=== PATIENT | female | born 1945 | race Caucasian/White ===

== ENCOUNTER → 2017-04-07 | Outpatient (CLI) | payer MEDICARE ==
[2016-05-15 12:38] VITALS: BP 146/77
[~2017-04-07] MED LIST: ACET325T9 PO; ASPI-630 PO; BUPR150T6 PO; CIPR250T30 PO; COLE625T12 PO; DOCU-109 PO; ESOM40CA PO; ESOM40CA25 PO; ESTR0.3T PO; EZET10TA18 PO; FELO5TAB PO; HYDR-2762 PO; LAMO150T PO; LEVO100T5 PO; LOSA100T6 PO; METH-38 PO; METH4TAB2 PO; METO-247 PO; OMEG1CAP38 PO; TRAM50TA PO; UBID50TA PO; VENL150C PO; VENL225T PO; megared
--- NOTE | 2017-04-07 14:58 | KCIC ---
CHEST PA LATERAL History: Chronic sinusitis, asthma Comparison: March 30, 2016 Findings: Cardiac silhouette is stable, within normal limits. There is no new infiltrate, pleural fluid, pneumothorax. 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 Impression: 1. No acute radiographic abnormality is identified. Electronically signed by: Julio Bruce MD (04/07/2017 2:55 PM) [id number]
--- NOTE | 2017-04-07 15:02 | KCIC ---
SINUS COMPLETE 3+V History: Chronic sinusitis, asthma Comparison: None. Findings: 3 views of the sinuses are submitted. Paranasal sinuses are overall aerated. No appreciable air-fluid levels are identified. Impression: 1. Paranasal sinuses are overall aerated, no appreciable air-fluid levels. Electronically signed by: Julio Bruce MD (04/07/2017 2:58 PM) [id number]
== END | disposition home or self-care (01) ==
LOC: KCIC 14:17
PROVIDERS: ATTEND Family Medicine
DX: J45.909 Unspecified asthma, uncomplicated (principal); J32.9 Chronic sinusitis, unspecified
CPT/HCPCS: 70220; 71020

== ENCOUNTER 2017-07-15 17:01 | Emergency (ER) | payer MEDICARE ==
[2017-07-15 18:20] LABS: BILIRUBIN,URINE NEGATIVE (NEG); CLARITY,URINE CLEAR; COLOR,URINE YELLOW; GLUCOSE,URINE NEGATIVE (NEG); NITRITE,URINE POSITIVE (NEG); PH,URINE 5.5; PROTEIN,URINE NEGATIVE (NEG-TRACE); UROBILINOGEN,URINE 0.2 mg/dL (0.2 mg/dL)
[2017-07-15] MEDS: ACETAMINOPHEN 325 MG TABLET. PO ×2 (18:25)
[2017-07-15] MEDS: diazePAM 5 MG TABLET PO ×2 (18:25)
[2017-07-15 18:28] LABS: BACTERIA,URINE MANY /HPF (0-FEW); RBC,URINE 0 /HPF (0-2); SQUAMOUS EPITHELIAL CELL,UR FEW /LPF; WBC,URINE >40 /HPF (0-4)
== END 2017-07-15 20:06 | disposition home or self-care (01) ==
LOC: ER 17:01
DX: N39.0 Urinary tract infection, site not specified (principal); E78.00 Pure hypercholesterolemia, unspecified; I10 Essential (primary) hypertension; Z90.49 Acquired absence of other specified parts of digestive tract; Z90.710 Acquired absence of both cervix and uterus; Z88.1 Allergy status to other antibiotic agents; Z88.2 Allergy status to sulfonamides; Z91.041 Radiographic dye allergy status
CPT/HCPCS: 72128; 72131; 81001; 87086; 87186; 99285-25

== ENCOUNTER → 2017-08-20 | Outpatient (CLI) | payer MEDICARE ==
[2017-08-20] MEDS: GADOBUTROL 7.5 MMOL/7.5 ML VIAL IV (14:37)
== END | disposition home or self-care (01) ==
LOC: KCIC MRI 13:35
DX: M51.36 Other intervertebral disc degeneration, lumbar region (principal); M48.061 Spinal stenosis, lumbar region without neurogenic claudication
CPT/HCPCS: 72158; 82565; A9585

== ENCOUNTER → 2017-12-06 | Outpatient (CLI) | payer MEDICARE | END | disposition home or self-care (01) | LOC: KCIC US 15:04 | DX: Z12.31 Encounter for screening mammogram for malignant neoplasm of breast (principal); E03.8 Other specified hypothyroidism | CPT/HCPCS: 76536; 77063; 77067 ==

== ENCOUNTER 2020-04-19 16:46 | Emergency (ER) | payer MEDICARE ==
[~2020-04-19] VITALS: Ht 149.9 cm; Wt 59.0 kg
[~2020-04-19 16:46] MED LIST changes: +ALPR0.5T6 PO; +CEPH-264 PO; +DESV100T PO; +DIAZ5TAB PO; +DOXY100C14 PO; -EZET10TA18 PO; +EZET10TA20 PO; -FELO5TAB PO; +FELO5TAB4 PO; -HYDR-2762 PO; +HYDR-2765 PO; +LAMO100T37 PO; -LAMO150T PO; +LAMO150T4 PO; +LOSA100T14 PO; -LOSA100T6 PO; +MIRT15TA3 PO; +NAPR-683 PO; +NITR100C62 PO; +OMEG1CAP43 PO
[2020-04-19 17:40] VITALS: BP 133/61
--- NOTE | 2020-04-19 18:14 | PHYS DOC ---
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 She states that she can put some pres sure on it but it is painful. She states she cannot walk on it. Rates her pain a 10 out of 10 with movement. She states when she is not moving it is a throbbing 4 out of 10. Patient denies any tingling. Patient has a history of hysterectomy, tonsillectomy, carpal tunnel, cataract, plantar fasciitis, anxiety, spinal stenosis, hypercholesteremia, hypertension, hypothyroidism, ap pendectomy, cholecystectomy. (JAMES VELASCO EXPLOSIVE ORDNANCE DISPOSAL MANAGER) Review of Systems: Review of Systems: Constitutional: Denies fever or chills. [] Eyes: Denies change in visual acuity. [] HENT: Denies nasal congestion or sore throat. [] Respiratory: Denies cough or shortness of breath. [] Cardiovascular: Denies chest pain or edema. [] GI: Denies abdominal pain, nausea, vomiting, bloody stools or diarrhea. [] : Denies dysuria. [] Musculoskeletal: Denies back pain. + Right knee joint pain. [] Integument: Denies rash. [] Neurologic: Denies headache, focal weakness or sensory changes. [] Endocrine: Denies polyuria or polydipsia. [] Lymphatic: Denies swollen glands. [] Psychiatric: Denies depression or anxiety. [] (JAMES VELASCO EXPLOSIVE ORDNANCE DISPOSAL MANAGER) Heart Score: Risk Factors: Risk Factors: DM, Current or recent (<one month) smoker, HTN, HLP, family history of CAD, obesity. Risk Scores: Score 0 - 3: 2.5% MACE over next 6 weeks - Discharge Home Score 4 - 6: 20.3% MACE over next 6 weeks - Admit for Clinical Observation Score 7 - 10: 72.7% MACE over next 6 weeks - Early Invasive Strategies (JAMES VELASCO APRN) Allergies: Allergies: Allergies Coded Allergies Type Severity Reaction Last Updated Verified [id number] Reductase Inhibitor Allergy Intermediate 03/18/14 Yes Sulfa (Sulfonamide Antibiotics) Allergy Intermediate Rash 06/18/18 Yes amoxicillin Allergy Intermediate Rash 06/18/18 Yes cephalexin Allergy Intermediate Rash 06/18/18 Yes clavulanic acid Allergy Intermediate Rash 06/18/18 Yes nitrofurantoin Allergy Intermediate 06/18/18 Yes (JAMES VELASCO EXPLOSIVE ORDNANCE DISPOSAL MANAGER) Physical Exam: PE: Constitutional: Well developed, well nourished, no acute distress, non-toxic appearance. [] HENT: Normocephalic, atraumatic, bilateral external ears normal, oropharynx moist, no oral exudates, nose normal. [] Eyes: PERRLA, EOMI, conjunctiva normal, no discharge. [] Neck: Normal range of motion, no tenderness, supple, no stridor. [] Cardiovascular:Heart rate regular rhythm, no murmur [] Lungs & Thorax: Bilateral breath sounds clear to auscultation [] Abdomen: Bowel sounds normal, soft, no tenderness, no masses, no pulsatile masses. [] Skin: Warm, dry, no erythema, no rash. [] Back: No tenderness, no CVA tenderness. [] Extremities: Right anterior knee tenderness, no cyanosis, no clubbing, ROM intact but painful, no edema. [] Neurologic: Alert and oriented X 3, normal motor function, normal sensory function, no focal deficits noted. [] Psychologic: Affect normal, judgement normal, mood normal. [] (JAMES VELASCO APRN) Current Patient Data: Vital Signs: Vital Signs Date Time Temp Pulse Resp B/P (MAP) Pulse Ox O2 Delivery O2 Flow Rate FiO2 04/19/20 17:40 98.0 85 20 133/61 (85) 96 Room Air 98.0 (JAMES VELASCO APRN) EKG: EKG: [] (JAMES VELASCO APRN) Radiology/Procedures: Radiology/Procedures: [] Impression: [facility] [address] [place] [address] IMAGING REPORT Signed PATIENT: LANE BOSSACCOUNT: [id number] : 1945 LOCATION: ER AGE: 74 SEX: F EXAM STATUS: REG ER ORD. PHYSICIAN: JAMES VELASCO APRN REASON: pain, twisting injury. Unable to bend knee for sunrise image -ANS PROCEDURE: KNEE RIGHT 3V 2 views right tibia-fibula and 3 views right knee HISTORY: Pain status post twisting injury Two-view right tibia fibula: AP lateral views Visualized osseous structures appear grossly intact. IMPRESSION: No acute findings. End impression 3 views right knee: AP lateral oblique views There is mild marginal spurring of all 3 compartments. There is no interruption of cortex is fracture. There is no joint effusion. IMPRESSION: Degenerative changes. No acute findings. Electronically signed by: Gianna Felix III, MD (04/19/2020 7:27 PM) [facility] DICTATED and SIGNED BY: GIANNA FELIX III, MD DATE: 04/19/20 [id number] (JAMES VELASCO APRN) Course & Med Decision Making: Course & Med Decision Making Pertinent Labs and Imaging studies reviewed. (See chart for details) There is no joint laxity, swelling, redness, deformity. Tenderness to anterior patella. Skin is pink warm and dry. No unilateral swelling. No calf tenderness. Full range of motion of the ankle. Full range of motion of the knee but is painful. X-ray shows no acute findings. Patient is placed in a knee immobilizer. She is to follow-up with orthopedics soon as possible. Patient is given a prescription for Medrol Dosepak. [] (JAMES VELASCO APRN) Dragon Disclaimer: Dragon Disclaimer: This electronic medical record was generated, in whole or in part, using a voice recognition dictation system. (JAMES VELASCO APRN) Departure Departure Impression: Primary Impression: Knee injury Qualified Codes: S89.91XA - Unspecified injury of right lower leg, initial encounter Disposition: 01 DC HOME SELF CARE/HOMELESS Condition: STABLE Referrals: EVA ALDRICH MD (PCP) GIANNA WALSH MD Patient Instructions: Knee Immobilizer-Brief, Knee Sprain Additional Instructions: Follow-up with orthopedic as I have referred you to. Use ice and elevation even a heating pad. Scripts Methylprednisolone (MEDROL) 4 Mg Tab.ds.pk 1 PKG PO UD, #1 PKG Prov: JAMES VELASCO APRN 04/19/20 Attending Signature Attending Signature I have reviewed the PA/LEAD SOFTWARE QA ENGINEER's note and plan of care. I was available for consultation as needed during the patient's visit in the emergency department. I agree with the clinical impression, plan, and disposition. (LUDMILA MUNOZ DO) JAMES VELASCO APRN Apr 19, 2020 18:13 LUDMILA MUNOZ DO Apr 19, 2020 23:08
--- NOTE | 2020-04-19 19:30 | RAD ---
2 views right tibia-fibula and 3 views right knee HISTORY: Pain status post twisting injury Two-view right tibia fibula: AP lateral views Visualized osseous structures appear grossly intact. IMPRESSION: No acute findings. End impression 3 views right knee: AP lateral oblique views There is mild marginal spurring of all 3 compartments. There is no interruption of cortex is fracture. There is no joint effusion. IMPRESSION: Degenerative changes. No acute findings. Electronically signed by: Chriss Laura III, MD (04/19/2020 7:27 PM) [facility]
[2020-04-19] MEDS ORDERED: METH4TAB2 PO (19:51)
== END 2020-04-19 20:11 | disposition home or self-care (01) ==
LOC: ER 16:46
DX: S89.81XA Other specified injuries of right lower leg, initial encounter (principal); F41.9 Anxiety disorder, unspecified; E78.00 Pure hypercholesterolemia, unspecified; I10 Essential (primary) hypertension; E03.9 Hypothyroidism, unspecified; Z90.710 Acquired absence of both cervix and uterus; Z90.49 Acquired absence of other specified parts of digestive tract; Z90.89 Acquired absence of other organs; Z98.890 Other specified postprocedural states; Z88.1 Allergy status to other antibiotic agents; Z88.2 Allergy status to sulfonamides; Z88.8 Allergy status to other drugs, medicaments and biological substances; W50.2XXA Accidental twist by another person, initial encounter; Y93.89 Activity, other specified; Y92.89 Other specified places as the place of occurrence of the external cause; Y99.8 Other external cause status
CPT/HCPCS: 29505; 73562; 73590; 99284

== ENCOUNTER → 2020-06-03 | Outpatient (CLI) | payer MEDICARE ==
[~2020-06-03] MED LIST changes: +BUPR150T21 PO; -BUPR150T6 PO; +DOXY-181 PO; -DOXY100C14 PO; +MIRT-7 PO; -MIRT15TA3 PO
--- NOTE | 2020-06-03 12:59 | KCIC ---
3 views of thoracic spine without comparison for chronic low back pain, prior surgeries. FINDINGS: There are 4 prior mid thoracic kyphoplasties. Pedicle screw and reanna fixation is seen throug hout the lower thoracic and lumbar spine. Findings result in a mild kyphosis with apex at T11. No def inite fracture or acute osseous or alignment abnormalities seen. IMPRESSION: 1. Extensive postsurgical changes of the thoracic spine with no acute osseous or alignment abnormalit y. Electronically signed by: Inder Burnett MD (06/03/2020 12:57 PM) [id number]
--- NOTE | 2020-06-03 13:00 | KCIC ---
3 views lumbar spine without comparison for chronic low back pain, prior surgeries. FINDINGS: There is no fracture or acute osseous or alignment abnormality of lumbar spine. Extensive p ostsurgical changes are seen throughout the lumbar spine including bilateral SI joint fusion and pedi kleber screw and reanna fixation at all levels. IMPRESSION: 1. Extensive postsurgical and degenerative changes throughout the lumbar spine with no acute osseous or alignment abnormality. Electronically signed by: Inder Burnett MD (06/03/2020 12:58 PM) [id number]
== END ==
LOC: KCIC 09:05
PROVIDERS: ATTEND Nurse Practitioner Gerontology
DX: M47.816 Spondylosis without myelopathy or radiculopathy, lumbar region (principal); M40.294 Other kyphosis, thoracic region; Z98.890 Other specified postprocedural states
CPT/HCPCS: 72072; 72100